=== PATIENT | female | born 2000 | race Caucasian/White ===

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

== ENCOUNTER 2019-04-25 14:23 | Emergency (ER) | payer BC ==
[~2019-04-25] VITALS: Ht 154.9 cm; Wt 54.4 kg
--- OUTSIDE RECORDS SUMMARY | 2019-04-25 14:25 | XMS REPORT ---
Author Author [facility] Address Unknown Phone Unavailable Care Team Providers Care [place] Worker Name Role Phone Allison CANDELARIA Unavailable Unavailable Problems This patient has no known problems. Allergies, Adverse Reactions, Alerts This patient has no known allergies or adverse reactions. Medications This patient has no known medications. Results Test Description Test Time Test Comments Text Results Atomic Results Result Comments CHEST 2 VIEWS [place] [address] Patient Name: ELLE STORY MR #: [id number] : 2000 Age/Sex: 17/F Req #: [id number] Adm Physician: Ordered by: ZAKI CANDELARIA MD Report #: [id number] Location: ER Room/Bed: Procedure: [id number] DX/CHEST 2 VIEWS Exam Date: 11/06/17 Exam Time: 1899 REPORT STATUS: Signed CHEST 2 VIEWS, Technique: CHEST 2 VIEWS Comparison: None Clinical history: Cough, congestion DISCUSSION: Normal appearance of the heart, mediastinum, lungs and pleural spaces. IMPRESSION: No acute abnormality. Signed by: Dr Ramses Huston MD on 11/06/2017 7:19 PM Dictated By: RAMSES HUSTON MD 18 Transcribed By: SHAYLA on 11/06/171918 COPY TO: ZAKI CANDELARIA MD
--- NOTE | 2019-04-25 14:54 | NUR ---
urine sample sent to lab
[2019-04-25 15:09] LABS: CLARITY,URINE SL CLOUDY (CLEAR); COLOR,URINE YELLOW (YELLOW); LEUKOCYTE ESTERASE ,URINE NEGATIVE (NEGATIVE); NITRITE,URINE NEGATIVE (NEGATIVE)
[2019-04-25 15:10] LABS: PROTEIN,URINE DIPSTICK NEGATIVE (NEGATIVE); URINE UROBILINOGEN 0.2 mg/dL (0.2 - 1)
[2019-04-25 15:11] LABS: BILIRUBIN,URINE 1+ (NEGATIVE); KETONES,URINE 1+ (NEGATIVE)
[2019-04-25 15:33] LABS: BACTERIA,URINE MODERATE /HPF; EPITHELIAL CELLS,URINE MANY /LPF; RBC,URINE 0-5 /HPF (0-5)
[2019-04-25] MEDS ORDERED: MOTRIN200 MG PO (16:19)
== END 2019-04-25 16:27 | disposition home or self-care (01) ==
LOC: ER 14:23
DX: R10.9 Unspecified abdominal pain (principal); N94.4 Primary dysmenorrhea
CPT/HCPCS: 81001; 99283